=== PATIENT | male | born 1965 | race Caucasian/White ===

== ENCOUNTER 2024-09-08 03:36 | Inpatient (IN) ==
[2024-09-08] MEDS: ASPIRIN 81 MG TAB.CHEW CHEWED ONE (04:06)
[2024-09-08] MEDS: ACETAMINOPHEN 1,000 MG/100 ML BAG IV ONE (04:18)
[2024-09-08 04:26] LABS: Basophils # (Auto) 0.03 K/mcL (0.00-0.30); Basophils % (Auto) 0.3 % (0.0-2.0); Eosinophils # (Auto) 0.07 K/mcL (0.00-0.70); Eosinophils % (Auto) 0.8 % (0.0-7.0); Hematocrit 40.4 % (40.1-51.0); Lymphocytes # (Auto) 0.38 K/mcL (1.50-4.80); Lymphocytes % (Auto) 4.3 % (15.5-49.0); Mean Cell Volume 89.8 fL (80.0-100.0); Mean Corpuscular HGB Conc 34.7 g/dL (31.0-36.0); Monocytes # (Auto) 0.28 K/mcL (0.10-0.90); Monocytes % (Auto) 3.2 % (1.0-12.0); Neutrophils % (Auto) 91.1 % (38.0-78.0); Platelet Count 233 K/mcL (140-440); Red Cell Distribution Width 11.9 % (11.5-14.5); WBC 8.9 K/mcL (4.5-11.0)
[2024-09-08] MEDS: 0.9 % SODIUM CHLORIDE 1,000 ML IV ONE ×3 (04:34→12:24)
[2024-09-08 04:48] LABS: ALT/SGPT 46 U/L (<40); AST/SGOT 44 U/L (<40); Albumin 4.1 gm/dL (3.2-5.2); Albumin/Globulin Ratio 1.5 (1.0-2.3); Alkaline Phosphatase 112 U/L (39-117); Bilirubin,Total 0.5 mg/dL (0.1-1.0); Blood Urea Nitrogen 20 mg/dL (8-23); Calcium 9.5 mg/dL (8.6-10.4); Carbon Dioxide 20 mmol/L (22-30); Chloride 102 mmol/L (96-108); Globulin 2.8 gm/dL (2.2-3.7); Glomerular Filtration Rate 65; Glucose 133 mg/dL (70-105); Potassium 3.5 mmol/L (3.3-5.1); Sodium 138 mmol/L (133-145)
[2024-09-08] MEDS: cefTRIAXone 1 GM VIAL IV ONE (05:23)
[2024-09-08] MEDS: AZITHROMYCIN 500 MG in 0.9 % SODIUM CHLORIDE 250 ML IV ONE (05:23)
[2024-09-08] MEDS: methylPREDNISolone SOD SUCC 125 MG/2 ML VIAL IV ONE (05:23)
[2024-09-08] MEDS: KETOROLAC 30 MG/ML VIAL IV ONE (05:59)
[2024-09-08] MEDS: BENZONATATE 100 MG CAPSULE PO ONE (06:20)
[2024-09-08] MEDS: IPRATROPIUM/ALBUTEROL 3 ML AMPUL.NEB NEB ONE (06:42)
[2024-09-08 09:47] LABS: Band Neutrophils % 13 % (0-10); Eosinophils % (Manual) 3 % (0-7); Lymphocytes % 2 % (15-49); Monocytes % (Manual) 4 % (1-12); Platelet Estimate NORMAL (Normal); RBC Morphology NORMAL (Normal); Reactive Lymphocytes 3 % (0-2); Segmented Neutrophils % 75 % (38-78)
[2024-09-08] MEDS ORDERED: ONDANSETRON 4 MG/2 ML VIAL IV PRN (11:19)
[2024-09-08] MEDS ORDERED: POLYETHYLENE GLYCOL 3350 17 GM PACKET PO PRN (11:19)
[2024-09-08] MEDS ORDERED: POTASSIUM CHLORIDE 40 MEQ in DEXTROSE 5% IN WATER 500 ML IV PRN (11:19)
[2024-09-08] MEDS ORDERED: POTASSIUM CHLORIDE 20 MEQ TABLET PO PRN (11:19)
[2024-09-08] MEDS ORDERED: MAGNESIUM SULFATE 2 GM/50 ML BAG IV PRN (11:19)
[2024-09-08] MEDS ORDERED: METOCLOPRAMIDE 10 MG/2 ML VIAL IV PRN (11:19)
[2024-09-08 13:53] LABS: Appearance,Urine Clear (Clear); Bilirubin,Urine Negative (Negative); Color,Urine Yellow; Glucose,Urine (UA) Negative (Negative); Ketones,Urine Negative (Negative); Leukocyte Esterase,Urine Negative /uL (Negative); Nitrate,Urine Negative (Negative); PH,Urine 5.5 (5.0-9.0); Protein,Urine Negative (Negative); Specific Gravity,Urine 1.015 (1.000-1.035); Urine Blood Negative ery/mcL (Negative); Urine RBC 0 /hpf (0-3); Urine Squamous Epithelial Cell 0 /hpf (0-4); Urine WBC 0 /hpf (0-4); Urobilinogen,Urine Normal
[2024-09-08] MEDS ORDERED: ALBUTEROL SULFATE 60 PUFF INHALER INH PRN (14:01)
[2024-09-08] MEDS: ACETAMINOPHEN 325 MG TABLET PO PRN (19:05)
[2024-09-08] MEDS: BENZONATATE 100 MG CAPSULE PO PRN (19:44)
[2024-09-08] MEDS: ATORVASTATIN 40 MG TABLET PO SCH (20:50)
[2024-09-08] MEDS: NORTRIPTYLINE 25 MG CAPSULE PO SCH (20:51)
[2024-09-08] MEDS: DOCUSATE SODIUM 100 MG CAPSULE PO SCH (20:54)
[2024-09-08] MEDS: 0.9 % SODIUM CHLORIDE 10 ML SYRINGE IV SCH (20:54)
[2024-09-08] MEDS ORDERED: OMEGA ACID ETHYL ESTERS PO SCH (21:00)
[2024-09-08] MEDS: guaiFENesin/CODEINE 10 ML UDC PO PRN (21:36)
[2024-09-09] MEDS: OMEPRAZOLE 20 MG CAPSULE PO SCH (07:36)
[2024-09-09] MEDS: FENOFIBRATE 43 MG CAPSULE PO SCH (08:35)
[2024-09-09] MEDS: ESCITALOPRAM 20 MG TABLET PO SCH (08:35)
[2024-09-09] MEDS: ENOXAPARIN 40 MG/0.4 ML SYRINGE SQ SCH (08:54)
[2024-09-09] MEDS: cefTRIAXone 1 GM VIAL IV SCH (08:54)
[2024-09-09] MEDS: AZITHROMYCIN 500 MG in 0.9 % SODIUM CHLORIDE 250 ML IV SCH (08:54)
[2024-09-09] MEDS: IPRATROPIUM/ALBUTEROL 3 ML AMPUL.NEB NEB PRN (14:56)
[2024-09-09] MEDS: ACETAMINOPHEN 325 MG TABLET PO ONE (18:35)
[2024-09-10] MEDS: SENNOSIDES 1 TABLET PO PRN (03:56)
[2024-09-10] MEDS ORDERED: ACETAMINOPHEN 650 MG/65 ML BAG IV PRN (09:14)
[2024-09-10 09:38] LABS: Basophils # (Auto) 0.01 K/mcL (0.00-0.30); Basophils % (Auto) 0.2 % (0.0-2.0); Eosinophils # (Auto) 0 K/mcL (0.00-0.70); Eosinophils % (Auto) 0 % (0.0-7.0); Hematocrit 39.4 % (40.1-51.0); Hemoglobin 13.2 g/dL (13.7-17.5); Mean Cell Volume 92.1 fL (80.0-100.0); Mean Corpuscular HGB Conc 33.5 g/dL (31.0-36.0); Mean Platelet Volume 10.5 fL (8.8-12.5); Monocytes # (Auto) 0.25 K/mcL (0.10-0.90); Monocytes % (Auto) 4.5 % (1.0-12.0); Neutrophils % (Auto) 76.4 % (38.0-78.0); Platelet Count 255 K/mcL (140-440); RBC 4.28 M/mcL (4.63-6.08); Red Cell Distribution Width 12.4 % (11.5-14.5); WBC 5.6 K/mcL (4.5-11.0)
[2024-09-10 09:55] LABS: ALT/SGPT 45 U/L (<40); AST/SGOT 51 U/L (<40); Albumin 3.7 gm/dL (3.2-5.2); Albumin/Globulin Ratio 1.2 (1.0-2.3); Alkaline Phosphatase 83 U/L (39-117); Bilirubin,Total 0.5 mg/dL (0.1-1.0); Blood Urea Nitrogen 13 mg/dL (8-23); Calcium 8.4 mg/dL (8.6-10.4); Carbon Dioxide 22 mmol/L (22-30); Chloride 100 mmol/L (96-108); Glomerular Filtration Rate 92; Glucose 82 mg/dL (70-105); Potassium 3.6 mmol/L (3.3-5.1); Sodium 136 mmol/L (133-145)
[2024-09-11 06:21] LABS: Basophils # (Auto) 0.01 K/mcL (0.00-0.30); Basophils % (Auto) 0.2 % (0.0-2.0); Eosinophils # (Auto) 0.01 K/mcL (0.00-0.70); Eosinophils % (Auto) 0.2 % (0.0-7.0); Hematocrit 38.4 % (40.1-51.0); Hemoglobin 12.9 g/dL (13.7-17.5); Lymphocytes # (Auto) 1.22 K/mcL (1.50-4.80); Lymphocytes % (Auto) 24.8 % (15.5-49.0); Mean Cell Volume 91.6 fL (80.0-100.0); Mean Corpuscular HGB Conc 33.6 g/dL (31.0-36.0); Mean Platelet Volume 10.7 fL (8.8-12.5); Monocytes # (Auto) 0.26 K/mcL (0.10-0.90); Monocytes % (Auto) 5.3 % (1.0-12.0); Neutrophils % (Auto) 67.7 % (38.0-78.0); Platelet Count 249 K/mcL (140-440); RBC 4.19 M/mcL (4.63-6.08); Red Cell Distribution Width 12.1 % (11.5-14.5); WBC 4.9 K/mcL (4.5-11.0)
[2024-09-11 06:24] LABS: ALT/SGPT 38 U/L (<40); AST/SGOT 50 U/L (<40); Albumin 3.5 gm/dL (3.2-5.2); Albumin/Globulin Ratio 1.1 (1.0-2.3); Alkaline Phosphatase 79 U/L (39-117); Bilirubin,Total 0.7 mg/dL (0.1-1.0); Blood Urea Nitrogen 14 mg/dL (8-23); Calcium 8.8 mg/dL (8.6-10.4); Carbon Dioxide 23 mmol/L (22-30); Chloride 99 mmol/L (96-108); Globulin 3.1 gm/dL (2.2-3.7); Glomerular Filtration Rate 92; Glucose 80 mg/dL (70-105); Potassium 3.8 mmol/L (3.3-5.1); Sodium 136 mmol/L (133-145)
[2024-09-11] MEDS: guaiFENesin/DEXTROMETHORPHAN 5ML UD CUP PO PRN (11:17)
[2024-09-11] MEDS ORDERED: LOPERAMIDE 2 MG CAPSULE PO PRN (11:24)
[2024-09-11 12:03] LABS: ABG Methemoglobin 0.1 % (0.4-1.5); Total Hemoglobin 13.3 gm/Dl (13.5-16.5); VBG Base Excess -3 (-2-3); VBG HCO3 21.5 mmol/L (24.0-28.0); VBG Oxygen Saturation 67.3 % (40.0-70.0); VBG PCO2 34.9 mmHg (41.0-51.0); VBG PH 7.41 U (7.32-7.42); VBG PO2 36.7 mmHg (25.0-40.0); VBG Total CO2 22.6 mmol/L (25.0-29.0)
[2024-09-11] MEDS: ZOLPIDEM 5 MG TABLET PO PRN (23:23)
[2024-09-12 06:47] LABS: Basophils # (Auto) 0.02 K/mcL (0.00-0.30); Basophils % (Auto) 0.4 % (0.0-2.0); Eosinophils # (Auto) 0.08 K/mcL (0.00-0.70); Eosinophils % (Auto) 1.5 % (0.0-7.0); Hematocrit 36.1 % (40.1-51.0); Hemoglobin 12.3 g/dL (13.7-17.5); Lymphocytes # (Auto) 1.75 K/mcL (1.50-4.80); Lymphocytes % (Auto) 33.6 % (15.5-49.0); Mean Cell Volume 90.3 fL (80.0-100.0); Mean Corpuscular HGB Conc 34.1 g/dL (31.0-36.0); Mean Platelet Volume 10.3 fL (8.8-12.5); Monocytes # (Auto) 0.35 K/mcL (0.10-0.90); Monocytes % (Auto) 6.7 % (1.0-12.0); Neutrophils % (Auto) 53.8 % (38.0-78.0); Platelet Count 254 K/mcL (140-440); WBC 5.2 K/mcL (4.5-11.0)
[2024-09-12 06:55] LABS: ALT/SGPT 40 U/L (<40); AST/SGOT 50 U/L (<40); Albumin 3.4 gm/dL (3.2-5.2); Albumin/Globulin Ratio 1.2 (1.0-2.3); Alkaline Phosphatase 81 U/L (39-117); Bilirubin,Total 0.4 mg/dL (0.1-1.0); Blood Urea Nitrogen 12 mg/dL (8-23); Calcium 8.5 mg/dL (8.6-10.4); Carbon Dioxide 23 mmol/L (22-30); Chloride 101 mmol/L (96-108); Globulin 2.9 gm/dL (2.2-3.7); Glomerular Filtration Rate 96; Glucose 115 mg/dL (70-105); Potassium 3.1 mmol/L (3.3-5.1); Sodium 137 mmol/L (133-145)
[2024-09-12 07:56] VITALS: TEMP 97.7
[2024-09-12] MEDS: LACTOBACILLUS 1 CAPSULE PO SCH (10:38)
[2024-09-12] MEDS: IPRATROPIUM/ALBUTEROL 3 ML AMPUL.NEB NEB PRN (10:58)
[2024-09-12 11:21] VITALS: O2SAT 97
[2024-09-12] MEDS: POTASSIUM CHLORIDE 20 MEQ TABLET PO PRN (12:44)
== END 2024-09-12 13:05 | disposition home or self-care (01) | DRG 871 ==
LOC: ED 03:36 → ICU 10:52 → MEDSUR 09-10 18:12
PROVIDERS: ADMIT Internal Medicine; ATTEND Internal Medicine